=== PATIENT | female | born 1965 | race African-American/Black ===

== ENCOUNTER 2017-09-21 19:13 | Emergency (ER) | payer MEDICARE, MEDICAID ==
[~2017-09-21] VITALS: Ht 170.2 cm; Wt 98.0 kg
[~2017-09-21 19:13] MED LIST: BENAZEPRIL; NIFEDIPINE
[2017-09-21] MEDS ORDERED: MORPHINE SULFATE 4 MG/ML CPJ (NOT FOR IM USE) IV STA (21:26)
[2017-09-21] MEDS ORDERED: ONDANSETRON HCL 4MG/2ML VIAL IV STA (21:26)
[2017-09-21] MEDS ORDERED: HYDRALAZINE 20MG/ML VIAL IV ONE (21:30)
[2017-09-21 22:04] LABS: HEMOGLOBIN. 13.9 g/dL (12.0-16.0); MEAN CORPUSCULAR HEMOGLOBIN 28.9 pg (28.0-32.0); MEAN CORPUSCULAR VOLUME 87.4 fL (81.0-99.0); MEAN PLATELET VOLUME 8.6 fl (7.4-10.4); PLATELET 151 x1000/uL (130-400); RED BLOOD CELL COUNT 4.81 mill/uL (4.2-5.4); RED CELL DISTRIBUTION WIDTH 17.8 % (11.6-14.6)
[2017-09-21 22:18] LABS: CARBON DIOXIDE 26 mEq/L (21-32); CHLORIDE 107 mEq/L (98-107); ETHANOL BLOOD < 10 mg/dL; TROPONIN I < 0.02 ng/mL (0.00-0.04)
[2017-09-21 22:45] LABS: PLATELET ESTIMATE NORMAL
[2017-09-22] MEDS ORDERED: CLONIDINE 0.2MG TABLET PO ONE (01:00)
[2017-09-22 02:04] VITALS: BP 161/99
== END 2017-09-22 02:23 | disposition home or self-care (01) ==
LOC: ER 20:01
DX: R51 Headache (principal); I10 Essential (primary) hypertension; D35.2 Benign neoplasm of pituitary gland
CPT/HCPCS: 36415; 70450; 70551; 71010; 80053; 83880; 84443; 84484; 85025; 85379; 93005; 96374; 96375; 99285; G0482; J0360; J2270; J2405

== ENCOUNTER → 2022-01-31 | Outpatient (CLI) | payer MEDICARE, MEDICAID ==
[2022-01-31 14:05] LABS: HEMATOCRIT. 44.8 % (36.0-48.0); HEMOGLOBIN. 14.6 g/dL (12.0-16.0); LYMPHOCYTES % 39.5 % (20.0-50.0); MEAN CORPUSCULAR HEMOGLOBIN 28.9 pg (28.0-32.0); MEAN CORPUSCULAR VOLUME 88.9 fL (81.0-99.0); MEAN PLATELET VOLUME 8.6 fl (7.4-10.4); MONOCYTES % 8.8 % (2.0-8.0); NEUTROPHILS % 46.7 % (40.0-76.0); PLATELET 140 x1000/uL (130-400); RED BLOOD CELL COUNT 5.04 mill/uL (4.2-5.4); RED CELL DISTRIBUTION WIDTH 16.7 % (11.6-14.6)
[2022-01-31 14:07] LABS: CLARITY URINE CLOUDY (CLEAR); COLOR URINE YELLOW (YELLOW); KETONES URINE NEGATIVE (NEGATIVE); LEUKOCYTE ESTERASE URINE TRACE (NEGATIVE); NITRITE URINE NEGATIVE (NEGATIVE); OCCULT BLOOD URINE TRACE (NEGATIVE); PH URINE 5.5 (4.5-8.0); PROTEIN URINE NEGATIVE (NEGATIVE); SPECIFIC GRAVITY URINE 1.029 (1.005-1.030)
[2022-01-31 14:14] LABS: CHLORIDE 109 mEq/L (98-107)
[2022-01-31 14:31] LABS: HDL CHOLESTEROL 59 mg/dL (40-59); LDL CHOLESTEROL 92 mg/dL (5-100); PHOSPHORUS 3.1 mg/dL (2.5-4.9)
[2022-02-01 08:49] LABS: RHEUMATOID FACTOR SCREEN POSITIVE (NEGATIVE)
[2022-02-01 09:06] LABS: ANTI-NUCLEAR ANTIBODIES DIRECT Positive (Negative)
[2022-02-01 13:06] LABS: *CREATININE RANDOM URINE 209.2 mg/dL (Not Estab.); MICROALBUMIN RANDOM URINE 31.6 ug/mL (Not Estab.)
[2022-02-02 09:11] LABS: VITAMIN D 1-25 DIHYDROXY 56.3 pg/mL (19.9-79.3)
== END | disposition home or self-care (01) ==
LOC: LAB 12:26
PROVIDERS: ATTEND Family Medicine
DX: M06.9 Rheumatoid arthritis, unspecified (principal); E66.09 Other obesity due to excess calories; E55.9 Vitamin D deficiency, unspecified; Z00.01 Encounter for general adult medical examination with abnormal findings; I10 Essential (primary) hypertension; Z79.899 Other long term (current) drug therapy
CPT/HCPCS: 36415; 80051; 80061; 80076; 81003; 82043; 82310; 82565; 82570; 82652; 82947; 83036; 84100; 84443; 84520; 84550; 85025; 86038; 86430